=== PATIENT | male | born 1970 | race Caucasian/White ===

== ENCOUNTER 2024-09-15 08:12 | Day surgery (SDC) | payer BC ==
[2024-09-13 15:29] VITALS: BMI 39.0
[~2024-09-15 08:12] MED LIST: PROPOFOL 10 MG/ML 20 ML VIAL IV ONE
[2024-09-15 08:35] VITALS: RESP 16; TEMP 98.4
[2024-09-15] MEDS: LIDOCAINE 1% (10MG/ML) FOR IV START INTRADERMA PRN (08:40)
[2024-09-15] MEDS: IV FLUID CONTINUATION 1,000 ML IV ONE (08:40)
[2024-09-15] MEDS: LACTATED RINGERS 1,000 ML IV SCH (08:40)
--- NOTE | 2024-09-15 08:47 | P.GSHP ---
History of Present Illness H&P Date: 09/15/24 CHIEF COMPLAINT: Colon screen HISTORY OF PRESENT ILLNESS: The patient is a 54-year-old male who presents for colon screen. Lower endoscopy was offered for further evaluation and management. PAST MEDICAL HISTORY: Please see list. PAST SURGICAL HISTORY: Please see list. MEDICATIONS: Please see list. ALLERGIES: Please see list. SOCIAL HISTORY: No illicit drug use FAMILY HISTORY: No reports of Crohn disease or ulcerative colitis. REVIEW OF ORGAN SYSTEMS: CONSTITUTIONAL: No reports of fevers or chills. PHYSICAL EXAM: VITAL SIGNS: Stable GENERAL: Well-developed pleasant in no acute distress. HEENT: No scleral icterus. Extraocular movements grossly intact. Moist buccal mucosa. NECK: Supple without lymphadenopathy. CHEST: Unlabored respirations. Equal bilateral excursions. CARDIOVASCULAR: Regular rate and rhythm. Distal 2+ pulses. ABDOMEN: Soft, nontender, nondistended. MUSCULOSKELETAL: No clubbing, cyanosis, or edema. ASSESSMENT: 1. Colon screen. PLAN: 1. Recommend proceeding with a lower endoscopy Past Medical History Past Medical History: Hypertension Additional Past Medical History / Comment(s): POSITIVE COLOGARD TEST History of Any Multi-Drug Resistant Organisms: None Reported Additional Past Surgical History / Comment(s): HAD BMT X 2 ADULT Past Anesthesia/Blood Transfusion Reactions: No Reported Reaction Smoking Status: Never smoker - Past Family History Father Family Medical History: Cancer Medications and Allergies Home Medications Medication Instructions Recorded Confirmed Type Olmesartan Medoxomil 20 mg PO DAILY 09/13/24 09/13/24 History QUEtiapine [SEROquel] 25 mg PO HS 09/13/24 09/13/24 History amLODIPine [Norvasc] 2.5 mg PO DAILY 09/13/24 09/13/24 History lamoTRIgine [LaMICtal Xr] 25 mg PO BID 09/13/24 09/13/24 History Allergies Allergy/AdvReac Type Severity Reaction Status Date / Time No Known Allergies Allergy Verified 09/13/24 15:13 Surgical - Exam Vital Signs Temp Pulse Resp BP Pulse Ox 98.4 F 87 16 149/70 97 09/15/24 08:32 09/15/24 08:32 09/15/24 08:32 09/15/24 08:32 09/15/24 08:32
--- NOTE | 2024-09-15 09:38 | P.PCN ---
Date of Procedure: 09/15/24 Description of Procedure: PREOPERATIVE DIAGNOSIS: Abnormal Cologuard test POSTOPERATIVE DIAGNOSIS: Tubular adenoma cecum Tubular adenoma transverse colon Scattered diverticulosis Internal hemorrhoids, grade 3 OPERATION: Colonoscopy to the ileocecal valve and appendiceal orifice, cecum Colonoscopy with hot snare polypectomy SURGEON: Nila Ricci MD. ANESTHESIA: MAC. INDICATIONS: The patient is an 54-year-old male who presents for his first colonoscopy following abnormal Cologuard. Benefits and risks were described and informed consent was obtained. DESCRIPTION OF PROCEDURE: The patient had undergone GoLytely prep. The patient had been brought into the operating room and laid in the left lateral decubitus position. After adequate intravenous sedation, the rectum was examined with 2% lidocaine jelly. The prostate was unremarkable. External hemorrhoids were encountered. The rectal tone was within normal limits. No lesions were palpated in the rectal vault. An Olympus colonoscope was advanced until the cecum, ileocecal valve and appendiceal orifice were clearly viewed. The prep was fair. Sigmoid diverticulosis with pandiverticulosis was encountered. Colonic polyps were found and removed. No evidence of focal colitis was found. Retroflexion of the scope demonstrated grade 3 internal hemorrhoids without active bleeding or inflammation. The colon was desufflated. The patient had tolerated the procedure well. Withdrawal time was over 6 minutes. FINDINGS: Aronchick preparation quality scale 3 (1-5) Internal hemorrhoids, grade 3 External hemorrhoids, grade 3. No arteriovenous malformations. Sigmoid diverticulosis with pandiverticulosis requiring abdominal wall pressure Removal of 2 polyps: - Snare polypectomy cecum, 8 mm tubulovillous adenoma - Snare polypectomy transverse colon, 3 mm flat villous adenoma No focal colitis. RECOMMENDATIONS: Recommend repeat colonoscopy 3 years, 2027 Plan - Discharge Summary Discharge Rx Participant: No New Discharge Prescriptions: Continue lamoTRIgine [LaMICtal Xr] 25 mg PO BID QUEtiapine [SEROquel] 25 mg PO HS amLODIPine [Norvasc] 2.5 mg PO DAILY Olmesartan Medoxomil 20 mg PO DAILY Discharge Medication List Olmesartan Medoxomil 20 mg PO DAILY 09/13/24 [History] QUEtiapine [SEROquel] 25 mg PO HS 09/13/24 [History] amLODIPine [Norvasc] 2.5 mg PO DAILY 03/11/25 [History] lamoTRIgine [LaMICtal Xr] 25 mg PO BID 09/13/24 [History] Follow up Appointment(s)/Referral(s): Nila Ricci MD [STAFF PHYSICIAN] - As Needed Patient Instructions/Handouts: Diverticulosis Diet (GEN), Diverticulosis (GEN), Colorectal Polyps (GEN) Activity/Diet/Wound Care/Special Instructions: Repeat colonoscopy 3 years, 2027 Discharge Disposition: HOME SELF-CARE
[2024-09-15 09:50] VITALS: BP 124/83; PULSE 80
== END 2024-09-15 10:17 | disposition home or self-care (01) ==
LOC: ORWHC2ENDO 08:12
PROVIDERS: ATTEND Surgery Plastic and Reconstructive Surgery
DX: Z12.11 Encounter for screening for malignant neoplasm of colon (principal); D12.0 Benign neoplasm of cecum; K64.2 Third degree hemorrhoids; K57.30 Diverticulosis of large intestine without perforation or abscess without bleeding; I10 Essential (primary) hypertension; G47.33 Obstructive sleep apnea (adult) (pediatric); Z99.89 Dependence on other enabling machines and devices; Z79.899 Other long term (current) drug therapy
CPT/HCPCS: 88305; 45385; J2704